=== PATIENT | female | born 1955 | race Native Hawaiian/Other Pacific Islander ===

== ENCOUNTER 2023-01-07 18:03 | Emergency (ER) | payer OTHER ==
[~2023-01-07] VITALS: Ht 167.6 cm; Wt 73.0 kg
[2023-01-07 18:05] VITALS: BP 190/99; TEMP 98.2
[2023-01-07 18:39] LABS: PLATELET COUNT 204 K/uL (152-353)
[2023-01-07 18:53] LABS: POTASSIUM 3.7 mmol/L (3.6-5.2)
[2023-01-07 18:58] LABS: PARTIAL THROMBOPLASTIN TIME 28.9 SECONDS (24.5-33.6)
== END 2023-01-07 22:02 | disposition short-term general hospital (02) ==
LOC: ED 18:03 → EDBD 18:03 → ED 22:02
PROVIDERS: Emergency Medicine
DX: S32.018A Other fracture of first lumbar vertebra, initial encounter for closed fracture (principal); S13.4XXA Sprain of ligaments of cervical spine, initial encounter; M47.816 Spondylosis without myelopathy or radiculopathy, lumbar region; S40.011A Contusion of right shoulder, initial encounter; S20.211A Contusion of right front wall of thorax, initial encounter; S30.1XXA Contusion of abdominal wall, initial encounter; S30.0XXA Contusion of lower back and pelvis, initial encounter; I10 Essential (primary) hypertension; Z87.81 Personal history of (healed) traumatic fracture; R51.9 Headache, unspecified; F17.210 Nicotine dependence, cigarettes, uncomplicated; V53.5XXA Driver of pick-up truck or van injured in collision with car, pick-up truck or van in traffic accident, initial encounter; Y92.89 Other specified places as the place of occurrence of the external cause
CPT/HCPCS: 80053; 82550; 84484; 85027; 85610; 85730; 93005; 96374; 96375; 99285; J2270; J2405